=== PATIENT | female | born 1950 | race Caucasian/White ===

== ENCOUNTER 2019-10-27 21:53 | Emergency (ER) | payer OTHER ==
[2019-10-27 22:02] VITALS: BP 123/64; PULSE 82; TEMP 97.8; BMI 40.2
--- NOTE | 2019-10-27 22:36 | PDOC ---
History of Present Illness - General Chief Complaint: Constipation Stated Complaint: CONSTIPATION Time Seen by Provider: 10/27/19 22:14 History Source: Patient Exam Limitations: No Limitations - History of Present Illness Initial Comments: 10/27/19 22:35 This is a 69-year-old female who comes in complaining of constipation. Patient has a history of chronic constipation for which she takes multiple different things. Patient said she has not been able to have a bowel movement x2 days and feels like there is a lot of stool in the rectal vault. Patient otherwise denies any fevers or chills or any other complaints. Allergies: as per nursing notes Past Medical History: none Social history: Lives with family. No smoking. No alcohol. No illicit drugs. Surgical history: None General: No fevers or chills, no weakness, no weight loss HEENT: No change in vision. No sore throat,. No ear pain CardioVascular: no chest discomfort. No shortness of breath Respiratory:No cough, or wheezing. Gastrointestinal: no nausea, vomiting, diarrhea or constipation, No rectal bleeding Genitourinary: No dysuria, hematuria, or frequency Musculoskeletal: No joint or muscle pain or swelling Neurologic: No headache, vertigo, dizziness or loss of consciousness Psychiatric: nor depression Skin: No rashes or easy bruising Endocrine: no increased thirst or abnormal weight change Allergic: no skin or latex allergy All other systems reviewed and normal GENERAL: The patient is awake, alert, and fully oriented, in no acute distress. HEAD: Normal with no signs of trauma. EYES: Pupils equal, round and reactive to light, extraocular movements intact, sclera anicteric, conjunctiva clear. RECTAL: Patient's rectal exam showed large amount of stool in the rectal vault. Stool was manually disimpacted and patient was administered a fleets enema. EXTREMITIES:atraumatic, Normal range of motion, no edema. NEUROLOGICAL: Normal speech, normal gait. PSYCH: Normal mood, normal affect. SKIN: Warm, Dry, normal turgor, no rashes or lesions noted. Past History - Past Medical History Allergies/Adverse Reactions: Allergies Allergy/AdvReac Type Severity Reaction Status Date / Time codeine [Codeine] Allergy Severe Nausea Verified 07/22/16 21:23 hydromorphone HCl Allergy Severe Nausea Verified 08/09/16 15:56 [From Dilaudid] oxycodone HCl [From Percocet] Allergy Severe Nausea Verified 08/09/16 15:56 iodine Allergy Intermediate RASH,ITCH Verified 08/09/16 15:49 Home Medications: Ambulatory Orders Amphet Asp/Amphet/D-Amphet [Adderall 20 mg Tablet] 25 mg PO DAILY PRN 12/30/12 Insulin Glargine,Hum.rec.anlog [Lantus (10mL VIAL) -] 28 units SQ HS 12/30/12 Exenatide [Byetta] 10 mcg SQ PRN PRN 07/22/16 Lamotrigine [Lamictal] 400 mg PO HS 07/22/16 Liothyronine Sodium [Cytomel] 20 mcg PO DAILY 07/22/16 clonazePAM [Klonopin -] 10 mg PO HS PRN 07/22/16 Hydrocodone/Acetaminophen [Hydrocodon-Acetaminoph 7.5-325] 1 each PO TID PRN # 12 tablet MDD 3 tabs 07/23/16 Tamsulosin HCl [Flomax] 0.4 mg PO DAILY #10 cap.er.24h 07/23/16 Acetaminophen/Caffeine/Butalb [Fioricet -] 1 tab PO Q4H PRN 08/09/16 Anemia: No Asthma: No Cancer: No Cardiac Disorders: No CVA: No COPD: No CHF: No Dementia: No Diabetes: Yes (IDDM) GI Disorders: No Disorders: Yes (KIDNEY STONES-LITHOTRIPSY LEFT) HTN: No Hypercholesterolemia: No Kidney Stones: Yes (LITHOTRIPSY) Liver Disease: No Psychiatric Problems: Yes (ADD, DEPRESSION/ANXIETY) Seizures: No Thyroid Disease: No - Surgical History Abdominal Surgery: No Appendectomy: No Cardiac Surgery: No Cholecystectomy: No Lung Surgery: No Neurologic Surgery: No Orthopedic Surgery: Yes (JINNY KNEE REPLACEMENT,ROTATOR CUFF JINNY,CARPEL TUNNEL JINNY ,THUMB SX,ARTHROSCOP) - Psycho Social/Smoking Cessation Hx Smoking Status: No Smoking History: Never smoked Number of Cigarettes Smoked Daily: 0 Hx Alcohol Use: No Drug/Substance Use Hx: No Substance Use Type: None *Physical Exam - Vital Signs Last Vital Signs Temp Pulse Resp BP Pulse Ox 97.8 F 82 18 123/64 100 10/27/19 21:54 10/27/19 21:54 10/27/19 21:54 10/27/19 21:54 10/27/19 21:54 Discharge - Discharge Information Problems reviewed: Yes Clinical Impression/Diagnosis: Constipation Qualifiers: Constipation type: unspecified constipation type Qualified Code(s): K59.00 - Constipation, unspecified Condition: Stable Disposition: HOME - Admission No - Follow up/Referral Referrals: Jeri Randolph [Primary Care Provider] - - Patient Discharge Instructions Additional Instructions: Drink the bottle of mag citrate tomorrow morning. Continue to take you what you usually take for your constipation. Return to the emergency department immediately with ANY new, persistent or worsening symptoms. Continue any medications as previously prescribed by your physician. You should follow up with your primary doctor as soon as possible regarding today's emergency department visit. . Please make sure your doctor reviews the results of your emergency evaluation. Thank you for coming to the Emergency Department today for your care. It was a pleasure to see you today. Please note that your evaluation is INCOMPLETE until you follow-up with your doctor. - Post Discharge Activity
[2019-10-27] MEDS ORDERED: MAGNESIUM CITRATE 300 ML BOTTLE PO ONE (22:41)
[2019-10-27] MEDS ORDERED: MAGNESIUM CITRATE 300 ML BOTTLE ONE (22:43)
== END 2019-10-27 23:51 | disposition home or self-care (01) ==
LOC: FER 21:53
DX: K59.00 Constipation, unspecified (principal); Z88.8 Allergy status to other drugs, medicaments and biological substances; E11.9 Type 2 diabetes mellitus without complications; N20.0 Calculus of kidney; F98.8 Other specified behavioral and emotional disorders with onset usually occurring in childhood and adolescence; F41.8 Other specified anxiety disorders; Z96.653 Presence of artificial knee joint, bilateral; Z88.6 Allergy status to analgesic agent
CPT/HCPCS: 81003; 99283-25

== ENCOUNTER 2021-02-21 09:45 | Emergency (ER) | payer OTHER ==
[2021-02-21 10:00] VITALS: BP 140/65; PULSE 68; TEMP 97.6; BMI 40.1
[2021-02-21] MEDS ORDERED: DIPHTH,PERTUSS(ACELL),TET 0.5 ML DISP.SYRIN IM ONE ×2 (10:47→11:13)
== END 2021-02-21 12:40 | disposition home or self-care (01) ==
LOC: FER 09:45
PROC: 0JQ10ZZ Repair Face Subcutaneous Tissue and Fascia, Open Approach (ICD-10-PCS; principal; 2021-02-21)
PROC: 3E0234Z Introduction of Serum, Toxoid and Vaccine into Muscle, Percutaneous Approach (ICD-10-PCS; 2021-02-21)
DX: S62.307A Unspecified fracture of fifth metacarpal bone, left hand, initial encounter for closed fracture (principal); S01.81XA Laceration without foreign body of other part of head, initial encounter
CPT/HCPCS: 70450-TC; 70486-TC; 72070-TC-FY; 72125-TC; 73110-TC-RT-FY; 73130-TC-RT-FY; 90471; 90715; 99285-25

== ENCOUNTER 2021-05-07 15:12 | Emergency (ER) | payer OTHER ==
[2021-05-07] MEDS ORDERED: SODIUM CHLORIDE 0.9% 500 ML INFUS.BAG IV ONE (15:41)
[2021-05-07 16:00] VITALS: BP 142/67; PULSE 73; TEMP 97.9; BMI 43.9
[2021-05-07 17:01] LABS: HEMOGLOBIN 13.4 GM/dl (10.7-15.3); MEAN PLT VOLUME 7.9 fl (7.5-11.1); RDW 12.9 % (11.6-15.6); WHITE BLOOD COUNT 8.6 K/mm3 (4.0-10.8)
[2021-05-07 17:06] LABS: BASO % 0.7 % (0-2.0); EOS % 3.7 % (0-4.5); HEMATOCRIT 39.4 % (32.4-45.2); LYMPH % 17.6 % (8-40); MCH 30.6 pg (25.7-33.7); MEAN CELL VOLUME 90.1 fl (80-96); MONO % 11.3 % (3.8-10.2); NEUT % 66.7 % (42.8-82.8); PLATELET COUNT 245 10^3/uL (134-434); RBC 4.38 M/mm3 (3.60-5.2)
[2021-05-07 17:08] LABS: ALBUMIN 3.6 g/dl (3.4-5.0); BILIRUBIN,TOTAL 0.2 mg/dl (0.2-1); CREATININE 1.3 mg/dl (0.55-1.3); TOT PROT 6.6 g/dl (6.4-8.2)
[2021-05-07 17:16] LABS: EPITHELIAL CELLS FEW /hpf
[2021-05-07] MEDS ORDERED: KETOROLAC TROMETHAMINE 30 MG/1 ML VIAL IVPUSH ONE (20:04)
[2021-05-07] MEDS ORDERED: KETOROLAC TROMETHAMINE 30 MG/1 ML VIAL ONE (20:13)
== END 2021-05-07 21:06 | disposition home or self-care (01) ==
LOC: FER 15:12
PROC: 3E033GC Introduction of Other Therapeutic Substance into Peripheral Vein, Percutaneous Approach (ICD-10-PCS; principal; 2021-05-07)
DX: M54.89 Other dorsalgia (principal); R10.9 Unspecified abdominal pain
CPT/HCPCS: 36415; 71046-TC-FY; 74176-TC; 80053; 81003; 81015; 85025; 85730; 87086; 99285-25